=== PATIENT | male | born 1955 | race Caucasian/White ===

== ENCOUNTER → 2022-02-03 | Outpatient (CLI) | payer OTHER | END | disposition home or self-care (01) | LOC: SHCH 11:08 | PROVIDERS: ATTEND Internal Medicine Cardiovascular Disease | DX: R00.2 Palpitations (principal) | CPT/HCPCS: 93306 ==

== ENCOUNTER → 2022-02-10 | Outpatient (CLI) | payer OTHER ==
[~2022-02-10] MED LIST: REGADENOSON 0.4 MG/5 ML PF SYG IVP SCH
== END | disposition home or self-care (01) ==
LOC: EDUNIT# 08:50 → SHCH 09:12
PROVIDERS: ATTEND Internal Medicine Cardiovascular Disease
DX: I10 Essential (primary) hypertension (principal); E78.00 Pure hypercholesterolemia, unspecified; R00.2 Palpitations; Z95.1 Presence of aortocoronary bypass graft; R07.9 Chest pain, unspecified
CPT/HCPCS: 78452; 96374; 93017; J2785; A9500 ×2

== ENCOUNTER → 2022-12-30 | Outpatient (CLI) | payer OTHER ==
[~2022-12-30] MED LIST changes: +ACET-2079 PO; +AEC81 PO; +CARV6.25 PO; +CLOP75TA32 PO; +EMPA25TA PO; +GABA300C PO; +INSU300I SQ; +LEVO25CA4 PO; +LOSA50TA64 PO; +OMEP20TA20 PO; -REGADENOSON 0.4 MG/5 ML PF SYG IVP SCH; +ROSU10TA28 PO; +SEMA1PEN3 SQ; +VENL75TA89 PO
== END | disposition home or self-care (01) ==
LOC: LAB 15:41
PROVIDERS: ATTEND Student in an Organized Health Care Education/Training Program
DX: T81.49XA Infection following a procedure, other surgical site, initial encounter (principal); Y93.89 Activity, other specified; Y92.89 Other specified places as the place of occurrence of the external cause
CPT/HCPCS: 87070; 87076; 87077; 87186; 87205